=== PATIENT | female | born 1975 | race African-American/Black ===

== ENCOUNTER 2021-12-12 00:08 | Day surgery (SDC) | payer BC, SELFPAY ==
[2021-12-07 11:07] VITALS: BMI 30.9
--- NOTE | 2021-12-07 11:17 | PC.NURSE ---
Report to the Outpatient Waiting Room, entrance under the green pavilion located off [facility], at time 1000 on date 12/12/21. OR Time: 1200. - You and your visitor will be asked a series of questions to screen for COVID 19 for your protection. - Only one visitor is allowed at this time. - The patient visitor is requested to leave or wait in car when not with patient. - A mask is required within the hospital. Patients may have clear liquids (water, carbonated beverages, clear teas, apple juice) until 3 hours prior to surgery with a maximum of 20 ounces. - No food from midnight until time of surgery Take the following medications with a SIP of water the morning of surgery: NONE Medications to discontinue per physician: N/A Date to take last dose: N/A Please no make-up, nail sol[place] islander, hairspray, perfume, deodorant, or body powder the day of surgery. No jewelry (including any body piercings) or valuables the day of surgery, leave them at home. Please take a shower or bath the night before, or the morning of, surgery with an antibacterial soap. Wear comfortable, loose fitting clothing. - Jewelry must be removed prior to entering the operating room. Rings and piercings that are not removed may be cut off. - The hospital will not accept responsibility for valuables. - Please leave all valuables, including medications, at home the day of surgery. If you are going home after surgery, a licensed local owner operator truck driver must drive you home. - NO public transportation without another adult. - We recommend that an adult stay with you for 24 hours following discharge. - We also recommend that you do not drive, make important decision, drink alcoholic beverages, or take any drugs that were not prescribed by your health care provider for at least 24 hours after your discharge time. Follow any additional instructions given to you from your surgeon. If you or anyone in your household have experienced Covid symptoms in the past week, please notify your surgeon or the nurse liaison at the phone number below for possible testing. Telephone instructions given to PT - CLOVIS NASH and asked if any additional questions and then verbalized understanding. Patient advised to call surgeon office or pre surgery nurse liaison [phone] if any additional questions.
--- NOTE | 2021-12-12 10:11 | PM.IMHP ---
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 Last biopsy in 10/2021. Pos HR HPV neg 16/18/45. She has opted for ablative procedure with LEEP due to the persistant dysplasia. Review of Systems Review of Systems: All systems reviewed & are unremarkable except as noted in HPI and below Constitutional: Constitutional: Reports no additional constitutional complaints Eyes: Eyes: Reports no additional eye complaints Cardiovascular: Cardiovascular: Reports no additional cardiovascular complaints Respiratory: Respiratory: Reports no additional respiratory complaints Gastrointestinal: Gastrointestinal: Reports no additional gastrointestinal complaints Genitourinary: Genitourinary: Reports no additional female genitourinary complaints and Reports as per HPI Integumentary/Breasts: Skin/Breast: Reports system reviewed and no additional complaints, except as docu Neurologic: Reports system reviewed and no additional complaints, except as documented Psychiatric: Psychiatric: Reports no additional psychiatric complaints Hematologic/Lymphatic: Hematologic/Lymphatic: Reports no additional hematologic/lymphatic complaints PMFSH Past Medical History Medical History Anemia SAB (spontaneous ) Vaginal delivery x2 Surgical History Surgical History Previous section Family History Family History Mother Hypertension Family history of malignant neoplasm of breast in first degree relative, Onset Age: 54 Breast cancer genetic susceptibility Breast cancer, Onset Age: 46 Mother diagnosed with breast cancer at and reoccurred at 55. Social History Social History Smoking status: Never smoker Second hand tobacco smoke exposure: No Alcohol intake: never Substance use: never Substance use type: does not use Living arrangements: with family Spiritual care concerns: No Meds Home Medications and Allergies Home Medications Medication Instructions Recorded Confirmed Type tranexamic acid 650 mg tablet 1,300 mg PO TID PRN during 11/17/21 12/07/21 Rx (Lysteda) menstrual cycle #30 tabs meclizine 25 mg tablet 1 tablet PO DAILY PRN Nausea 12/07/21 12/07/21 History Allergies Allergy/AdvReac Type Severity Reaction Status Date / Time No Known Allergies Allergy Verified 12/07/21 11:05 Exam Const: General: comfortable and no acute distress Orientation/consciousness: oriented to person, oriented to place and oriented to time Eyes: General: appearance normal, both eyes and all related structures Neck: Neck: normal visual inspection Resp: Effort & Inspection: normal respiratory effort Auscultation: clear to auscultation bilaterally Cardio: Rate: regular rate Rhythm: regular rhythm GI: Inspection: normal to inspection GI Palp: No abdominal tenderness and Yes No hepatosplenomegaly present : External Female Exam: normal external appearance Speculum Exam - Vagina: normal appearance of the vagina Speculum Exam - Cervix: normal appearance of the cervix Bimanual exam- vagina & uterus: normal bimanual exam, uterine mobility normal, uterine shape normal and non-tender Bimanual Exam- Adnexa, other: no masses and No adnexal tenderness Skin: General skin exam: normal color Neuro: General: oriented to person, oriented to place and oriented to time Extrem: General: normal to inspection Psych: Appearance: grossly normal Assessment and Plan Assessment and plan (1) LGSIL on Pap smear of cervix: Code(s): R87.612 - Low grade squamous intraepithelial lesion on cytologic smear of cervi
[2021-12-12] MEDS: ACETAMINOPHEN 500 MG TABLET 1000 MG PO (10:17)
[2021-12-12 10:29] VITALS: BP 146/87; PULSE 66; RESP 16; TEMP 36.3; O2SAT 100
[2021-12-12 10:50] LABS: Hematocrit 32.8 % (37.0-47.0); Hemoglobin 9.6 g/dL (12.0-15.0)
--- NOTE | 2021-12-12 11:50 | WPDHPUPDATE1 ---
History and Physical Update Update Date/Time: 12/12/21 11:50 History and Physical has been reviewed, including an updated exam of the patient. There are NO changes in the patient's condition. Risks, benefits, and alternatives have been discussed and questions answered. Patient agrees to proceed with procedure.
--- NOTE | 2021-12-12 11:54 | P.PNAN_ITS ---
Anes - Initial Pre Proc Eval Procedure: Operation Date: 12/12/21 12:00 Proposed Procedures p Loop Electrical Excision Procedure - Mahesh Brunson MD Date/Time: 12/12/21 11:54 Surgeon: Mahesh Brunson MD Pre Op Diagnosis: persistent dysplasia Patient Data Age: 46 Gender: F Height: 1.63 m Weight: 79.4 kg Last Vital Signs Temp 97.3 F L 12/12/21 10:29 Pulse 66 12/12/21 10:29 Resp 16 12/12/21 10:29 BP 146/87 H 12/12/21 10:29 Pulse Ox 100 12/12/21 10:29 O2 Del Method Room Air 12/12/21 10:29 Allergies Allergy/AdvReac Type Severity Reaction Status Date / Time No Known Allergies Allergy Verified 12/07/21 11:05 Home Medications Medication Instructions Recorded Confirmed Type tranexamic acid 650 mg tablet 1,300 mg PO TID PRN during 11/17/21 12/12/21 Rx (Lysteda) menstrual cycle #30 tabs meclizine 25 mg tablet 1 tablet PO DAILY PRN Nausea 12/07/21 12/07/21 History Laboratory Tests 12/12/21 10:45 Hgb 9.6 g/dL L g/dL (12.0-15.0) Hct 32.8 % L % (37.0-47.0) Patient hx anesthesia problems: none Family hx anesthesia problems: none Results Review: All pre-operative results and documents have been reviewed as part of the pre- operative evaluation. PMFSH Past Medical History Medical History Anemia SAB (spontaneous ) Vaginal delivery x2 Surgical History Surgical History Previous section Family History Family History Mother Hypertension Family history of malignant neoplasm of breast in first degree relative, Onset Age: 54 Breast cancer genetic susceptibility Breast cancer, Onset Age: 46 Mother diagnosed with breast cancer at and reoccurred at 55. Social History Social History Smoking status: Never smoker Second hand tobacco smoke exposure: No Alcohol intake: never Substance use: never Substance use type: does not use Living arrangements: with family Spiritual care concerns: No Anes - Eval Final PreProcedure Day of Procedure 12/12/21 11:54 Patient weight: obese Heart: regular rate and rhythm Lungs: clear to auscultation Airway: Mallampati scale class II Neurological: alert and oriented Last oral intake: >/= 8 hours ASA classification: II Emergent: no Anesthetic plan: proceed Anesthesia type and monitoring: general GIVS and standard monitoring Results Review: All pre-operative results and documents have been reviewed as part of the pre- operative evaluation. Informed Consent: The patient's anesthetic plan and its attendant risks and benefits were discussed with the patient/family/POA. Questions were solicited and answers provided to the satisfaction of the patient/family/POA.
[2021-12-12] MEDS: LACTATED RINGERS 1,000 ML 30 ML IV CONT (11:58)
[2021-12-12] MEDS: ceFAZolin 2 GM/D5W 50 ML 2 GM/50 ML BAG IVPB (12:33)
[2021-12-12] MEDS: LIDO 1%/EPINEPHRINE/PF 1:200,000 30 ML VIAL 10 ML XX (12:50)
[2021-12-12 13:00] VITALS: BP 98/58; PULSE 68; RESP 12; O2SAT 98
--- NOTE | 2021-12-12 13:05 | W.PM.PROC2 ---
Procedure Note - Detailed Date of Procedure 12/12/21 Pre-op Diagnosis persistent dysplasia Post-op Diagnosis Same Procedure Performed Loop electrosurgical excision procedure Surgeon Mahesh Brunson MD Anesthesia MAC and Local Indications Persistant low grade dysplasia Findings Decreased lugols uptake at transformation zone Description of Procedure The patient was taken to the OR where adequate IV sedation was administered. She was then prepped and draped in the usual sterile fashion and placed in the dorsal lithotomy position. A Graves speculum was placed in the vagina. Lugol?s solution was painted along the entire cervix and vaginal wall. Areas of non-uptake were noted to be around the entire squamocolumnar junction. 10 cc of lidocaine with epinephrine was injected at surgical site. The large loop electrode was used to remove the anterior or top portion of the cervix and a separate posterior specimen which included all of the hypopigmented area was excised and sent to pathology. The smallest loop electrode was used to obtain excision of the endocervix. The bed of the excised cervical tissue along the cervix was cauterized using the roller ball. Monsel's paste applied to area. Hemostasis was noted. All instruments were removed from vagina at this point. The patient tolerated the procedure well without complication and was taken to the recovery room in stable condition. Estimated Blood Loss 5 Drains No Packing No Pathology Yes (LEEP specimen- anterior, posterior, and endocervical.) Complications No immediate complications Condition Stable Disposition Same day [facility] Billing Surgery - Charge Forward: Surgery Billing
[2021-12-12 13:30] VITALS: BP 107/72; PULSE 63; RESP 12; O2SAT 96
[2021-12-12 14:00] VITALS: BP 108/68; PULSE 52; RESP 16
== END 2021-12-12 14:14 | disposition home or self-care (01) ==
PROVIDERS: Anesthesiology; PCP Internal Medicine; Visit Provider Obstetrics & Gynecology
PROC: 0UBC7ZZ Excision of Cervix, Via Natural or Artificial Opening (ICD-10-PCS; CPT 57522; principal; 2021-12-12 12:00)
DX: R87.612 Low grade squamous intraepithelial lesion on cytologic smear of cervix (LGSIL) (principal)
CPT/HCPCS: 57522; 36415; 85014; 85018; 88305; A9270; J0690; J2250; J2405; J2704; J3010; J7120